=== PATIENT | male | born 1950 | race Caucasian/White ===

== ENCOUNTER → 2016-12-04 | Outpatient (CLI) | payer MEDICARE, OTHER ==
[~2016-12-04] MED LIST: ASPI-611 PO; CEPH500T PO
--- NOTE | 2016-12-04 13:36 | DI ---
Indication: ITS.REASON: M25.561 PAIN IN RIGHT KNEE PROCEDURE: KNEE RIGHT 3 VIEWS: Encounter: Initial Comparison: None Findings: There is no acute fracture, dislocation or malalignment identified. Moderate medial and lateral compartment joint space narrowing with small osteophytes and meniscal chondrocalcinosis. Patellofemoral compartment joint space is maintained. Impression: No acute osseous abnormality. Moderate osteoarthritis. .
--- NOTE | 2016-12-04 13:38 | DI ---
Indication: ITS.REASON: M25.561 PAIN IN RIGHT ANKLE/JOINTS OF RT FOOT PROCEDURE: ANKLE RIGHT 3 VIEW: Encounter: Initial Comparison: None Findings: There is no acute fracture, dislocation or malalignment identified. Old healed deformities of the distal tibia and fibula with malunion, incompletely evaluated. Significant degenerative change in the talonavicular joint. Posterior and inferior calcaneal spurring. Impression: No acute osseous abnormality. Degenerative change in the hindfoot. .
== END ==
LOC: IMA 12:23
PROVIDERS: ATTEND Family Medicine
DX: M17.11 Unilateral primary osteoarthritis, right knee (principal); M19.071 Primary osteoarthritis, right ankle and foot; M25.571 Pain in right ankle and joints of right foot; M25.561 Pain in right knee

== ENCOUNTER 2016-12-17 08:13 | Day surgery (SDC) | payer MEDICARE, OTHER ==
[~2016-12-17] VITALS: Ht 180.3 cm; Wt 84.2 kg
[~2016-12-17 08:13] MED LIST changes: -ASPI-611 PO; -CEPH500T PO; +LIDOCAINE 1% (10mg/ml) 2ml SDV INJ ONE; +LISI1TAB11 PO; +LR 1,000 ML IV SCH
--- OUTSIDE RECORDS SUMMARY | 2016-12-17 08:16 | XMS REPORT ---
Author Author Maurice Vines Organization [employer] Address Unknown Phone Unavailable Care Team Providers Care Manufacturing Worker Name Role Phone Maurice Vines CP Unavailable Allergies No Known Allergies Problems No Known Problems Medications Medication Code System Code Instructions Start Date End Date Status Dosage Lisinopril [facility] [address]-10 5 MG Orally Once a day Jul 23, 2015 1 tablet Results No Known Results Summary Purpose [employer]Works Submission
--- OUTSIDE RECORDS SUMMARY | 2016-12-17 08:16 | XMS REPORT ---
Author Author Maurice Vines Organization [employer] Address Unknown Phone Unavailable Care Team Providers Care Treer Name Role Phone Maurice Vines CP Unavailable Allergies, Adverse Reactions, Alerts Substance Reaction Event Type N.K.D.A. Info Not Available Non Drug Allergy Problems Problem Type Condition Code Onset Dates Condition Status Assessment Hypersomnia, unspecified G47.10 Active Assessment Family history of malignant neoplasm of prostate Z80.42 Active Problem Essential (primary) hypertension I10 Active Assessment Encounter for immunization Z23 Active Medications Medication Code System Code Instructions Start Date End Date Status Dosage Zostavax [facility] [address]-20 63031 UNT/0.65ML Subcutaneous once Apr 29, 2016 Apr 30, 2016 one injection Procedures Procedure Coding System Code Date OFFICE VISIT, EST-LOW COMPLEXITY (15 MIN.) CPT-4 31519 Apr 29, 2016 Vital Signs Date/Time: Apr 29, 2016 Temperature 97.4 F Height 70 in Weight 191.6 lbs Blood Pressure Diastolic 82 mm Hg Blood Pressure Systolic 124 mm Hg Cardiac Monitoring Heart Rate 75 /min BMI 27.49 Index Oximetry 98 % Respiratory Rate 16 /min Results No Known Results Summary Purpose [employer]Works Submission
--- OUTSIDE RECORDS SUMMARY | 2016-12-17 08:16 | XMS REPORT ---
Author Maurice Sheets Organization [employer] Address Unknown Phone Unavailable Care Team Providers Care Photocopying Equipment Repairer Name Role Phone Maurice Vines CP Unavailable Allergies No Known Allergies Problems Problem Type Condition Code Onset Dates Condition Status Assessment Other fatigue R53.83 Active Assessment Somnolence R40.0 Active Problem Essential (primary) hypertension I10 Active Assessment Essential (primary) hypertension I10 Active Medications No Known Medications Procedures Procedure Coding System Code Date C-REACTIVE PROTEIN CPT-4 62655 Apr 16, 2016 SED RATE CPT-4 32293 Apr 16, 2016 COMPLETE CBC W/AUTO DIFF WBC CPT-4 54652 Apr 16, 2016 URINALYSIS WITH MICROSCOPIC CPT-4 85617 Apr 16, 2016 TSH CPT-4 53754 Apr 16, 2016 IH LIPID PANEL CPT-4 55337 Apr 16, 2016 IH CMP CPT-4 84557 Apr 16, 2016 Results Name Result Date Reference Range Unit Abnormality Flag TSH ----TSH 1.83 [id number] 0.35-4.94 uIU/mL Urinalysis with Microscopic ----WBC, Urine 0-2 11970123 0-4 /HPF ----Blood Negative [id number] Negative ----Ketones Negative 01726705 Negative ----RBC, Urine 0-4 31711460 0-4 /HPF ----Nitrites Negative [id number] Negative ----Leukocyte Esterase Negative 26902311 Negative ----Protein Negative 35538249 Negative ----Urobilinogen 0.2 32520788 <1.0 mg/dL ----Appearance Clear 20160416 ----Glucose, Urine Negative [id number] Negative ----Epithelial Cells 0-2 65555389 /HPF ----Color Yellow 69816627 ----pH 6.5 42257605 5.0-8.0 ----Bilirubin Negative 45837766 Negative ----Specific [place] 1.013 28214933 1.003-1.030 CBC With Platelet and Differential ----Absolute Eosinophils 0.16 58362106 0.00-0.50 10*3 ----Absolute Monocytes 0.46 52564828 0.30-1.00 10*3 ----Neutrophils 61 93896381 51-75 % ----Absolute Basophils 0.01 24509871 0.00-0.20 10*3 ----MPV 10.5 11586098 8.8-14.8 fL ----Monocytes 10 85324316 4-11 % ----RDW 13.2 02113032 11.5-14.5 % ----Lymphocytes 25 05427765 20-46 % ----MCHC 35.3 28489589 32.0-36.0 g/dL ----MCH 31.0 14682493 27.0-32.0 pg ----MCV 87.9 47702857 82.0-99.0 fL ----Immature Granulocytes 0.2 91041656 0.0-1.0 % ----Platelet Count 172 31068213 150-400 K/uL ----Absolute Lymphocytes 1.15 13911751 0.80-3.30 10*3 ----Absolute Neutrophils 2.74 88995033 1.90-7.00 10*3 ----Eosinophils 4 53458642 0-4 % ----Basophils 0 28403622 0-2 % ----WBC 4.5 30953034 4.8-10.8 K/uL L ----RBC 5.03 12478389 4.60-6.20 10*6/uL ----HGB 15.6 67994797 14.0-18.0 g/dL ----HCT 44.2 49897744 42.0-52.0 % C-Reactive Protein ----C-Reactive Protein <0.5 04214111 <0.5 mg/dL Sedimentation Rate ----Sedimentation Rate 3 63865144 0-15 mm/h In House Lipid Panel ----VLDL 12 20160416 ----LDL 89 13739363 ----Chol/HDL Ratio 3.0 95903038 ----WYDLc 101 20160416 ----Triglycerides 61 57322827 ----HDL 51 20160416 ----Cholesterol 153 53925686 In House CMP ----CO2 29 63124750 18 - 33 mmol/L ----Potassium 3.8 91699765 3.6 - 5.1 mmol/L ----Glucose 79 54725270 73 - 118 mg/DL ----Chloride 105 18354419 98 - 108 mmol/L ----BUN 15 99923613 7 - 22 mg/DL ----Calcium 8.7 07920365 8.0 - 10.3 mg/DL ----Alkaline Phosphatase 44* 85604368 53 - 128 u/L ----Creatinine 0.9 14647059 0.6 - 1.2 mg/DL ----ALT 24 83304236 10 - 47 u/L ----Total Bilirubin 0.9 12328923 0.2 - 1.6 mg/DL ----AST 28 73424442 11 - 38 u/L ----EGFR >60 20160416 ----Albumin 3.7 66169150 3.3 - 5.5 g/DL ----Sodium 140 28727779 128 - 145 mmol/L ----Total Protein 6.4 72666491 6.4 - 8.1 G/DL Summary Purpose eClinicalWorks Submission
--- OUTSIDE RECORDS SUMMARY | 2016-12-17 08:16 | XMS REPORT ---
Author Author Maurice Vines Organization [employer] Address Unknown Phone Unavailable Care Team Providers Care Assembly Hand Name Role Phone Maurice Vines CP Unavailable Allergies, Adverse Reactions, Alerts Substance Reaction Event Type N.K.D.A. 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 Jun 26, 2015 Aug 07, 2015 1 application to affected area Procedures Procedure Coding System Code Date OFFICE VISIT, KING MAKER-LOW COMPLEXITY (20 MIN.) CPT-4 05379 Jun 26, 2015 Vital Signs Date/Time: Jun 26, 2015 Height 70 in Weight 188.0 lbs Temperature 98.1 F Blood Pressure Diastolic 86 mm Hg Blood Pressure Systolic 124 mm Hg Cardiac Monitoring Heart Rate 80 /min BMI 26.97 Index Oximetry 98 % Respiratory Rate 16 /min Results No Known Results Summary Purpose eClinicalWorks Submission
--- OUTSIDE RECORDS SUMMARY | 2016-12-17 08:16 | XMS REPORT ---
Author Author Maurice Vines Organization [employer] Address Unknown Phone Unavailable Care Team Providers Care Fishing Game Warden Name Role Phone Maurice Vines CP Unavailable Allergies, Adverse Reactions, Alerts Substance Reaction Event Type N.K.D.A. Info Not Available Non Drug Allergy Problems Problem Type Condition Code Onset Dates Condition Status Assessment Other fatigue R53.83 Active Assessment Somnolence R40.0 Active Problem Essential (primary) hypertension I10 Active Assessment Hemorrhage of anus and rectum K62.5 Active Assessment Other hemorrhoids K64.8 Active Assessment Essential (primary) hypertension I10 Active Assessment Low back pain M54.5 Active Medications No Known Medications Procedures Procedure Coding System Code Date OFFICE VISIT, EST-LOW COMPLEXITY (15 MIN.) CPT-4 75960 Apr 15, 2016 Vital Signs Date/Time: Apr 15, 2016 Temperature 97.7 F Height 70 in Weight 192.2 lbs Blood Pressure Diastolic 88 mm Hg Blood Pressure Systolic 122 mm Hg Cardiac Monitoring Heart Rate 73 /min BMI 27.57 Index Oximetry 97 % Results No Known Results Summary Purpose eClinicalWorks Submission
--- OUTSIDE RECORDS SUMMARY | 2016-12-17 08:16 | XMS REPORT | Continuity of Care Document ---
Author Author [facility] Organization [facility] Address Unknown Phone Unavailable Support Name Relationship Address Phone JONASGERALDO GRANT Caregiver [facility] [address] [place] [address] SARA LIZARRAGA Caregiver [address] [place], [place] [address] KAREN RICO Caregiver [address] [place] [address] MICHELLE HERNANDEZ Next Of Kin Unknown [phone] Insurance Providers Payer Name Policy Number Subscriber Name Relationship [employer] [id number] Rohit Hernandez 19 Self Advance Directives Directive Response Recorded Date/Time Advanced Directives Type None 11/16/14 2:44pm Problems Medical Problems Problem Onset Date Status Cellulitis Unknown Active Contusion Unknown Active Cellulitis Unknown Active Medications Medication Dose Route Sig Days/Qty Instructions Order Date Discontinued Date Status Hydrocodone Bit/Acetaminophen 1 Tab PO NEEDED 03/01/11 12/02/12 Discontinued Aspirin 81 Mg PO DAILY 12/02/12 Active Cephalexin 1 Tab PO FOUR TIMES DAILY 7 Days 11/16/14 Active Social History Social History Problem Response Recorded Date/Time Chewing Tobacco Status No 12/02/2012 2:20pm Hx Substance Use No 11/16/2014 1:35pm Hx Alcohol Use No 11/16/2014 1:35pm Has the pt used tobacco in the last 12 months No 12/02/2012 2:20pm Query Response Start Date Stop Date Smoking Status Never smoker Hospital Discharge Instructions No hospital discharge instructions. Plan of Care No plan of care. Functional Status Query Response Date Recorded Physical Hygiene Self November 16, 2014 1:35pm Disabilities Visual November 16, 2014 1:35pm Devices Used Glasses November 16, 2014 1:35pm Dressing Self November 16, 2014 1:35pm Ambulation Self November 16, 2014 1:35pm Diet Self November 16, 2014 1:35pm Mental Status Alert Oriented November 16, 2014 1:35pm Disabilities Visual November 16, 2014 1:35pm Devices Used Glasses November 16, 2014 1:35pm Physical Hygiene Self November 16, 2014 1:35pm Dressing Self November 16, 2014 1:35pm Ambulation Self November 16, 2014 1:35pm Diet Self November 16, 2014 1:35pm Allergies, Adverse Reactions, Alerts Allergen Type Severity Reaction Status Last Updated No Known Allergies Active 03/01/11 Immunizations Name Given Type Hx Influenza Vaccination No Historical Hx Pneumococcal Vaccination No Historical Hx Tetanus, Diptheria, Pertussis N 1992 Historical Hx Influenza Vaccination No Historical Hx Tetanus Diptheria N UNKNOWN Historical Hx Tetanus, Diptheria, Pertussis N 1992 Historical Hx Tetanus Toxoid Vaccination No Historical Vital Signs Acute Vital Signs Vital Response Date/Time Temperature (Fahrenheit) 97.8 deg F (96.8 - 99.1) Temperature (Calculated Celsius) 36.33950 degrees C (36.0 - 37.3) Pulse Rate (adult) 82 bpm (60 - 100) Respiratory Rate 16 breaths/min (10 - 20) O2 Sat by Pulse Oximetry 97 % (90 - 100) Blood Pressure 179/97 mm Hg Height 5 ft 11 in Weight 191 lb Body Mass Index 26.0 kg/m^2 Results Test Source Date Result Interp. Ref. Range Comments Alanine Aminotransferase (ALT/SGPT) March 01, 2011 11:20am 24 U/L N 21- 72 Albumin March 01, 2011 11:20am 4.1 G/DL N 3.5-5.0 Albumin/Globulin Ratio March 01, 2011 11:20am 1.5 RATIO N 1.1-2.2 Alkaline Phosphatase March 01, 2011 11:20am 55 U/L N 38-126 Anion Gap March 01, 2011 11:20am 8 MEQ/L N 5-15 Aspartate Amino Transf (AST/SGOT) March 01, 2011 11:20am 35 U/L N 17-59 BUN/Creatinine Ratio March 01, 2011 11:20am 23 RATIO N 6-26 Basophils # (Auto) November 16, 2014 3:17pm 0.0 T/MM3 N 0-0.2 Basophils (%) (Auto) November 16, 2014 3:17pm 0.4 % N 0-2 Blood Urea Nitrogen March 01, 2011 11:20am 18.0 MG/DL N 9-20 Calcium Level March 01, 2011 11:20am 8.8 MG/DL N 8.4-10.2 Calculated Osmolality March 01, 2011 11:20am 274 MOSM/KG N 261-280 Carbon Dioxide Level March 01, 2011 11:20am 29 MEQ/L N 22-30 Chloride Level March 01, 2011 11:20am 105 MEQ/L N 98-107 Creatinine March 01, 2011 11:20am 0.8 MG/DL N 0.8-1.5 D-Dimer March 01, 2011 11:20am 182 NG/ML N 0-230 <224 NG/ML=PRESUMPTIVE NEGATIVE FOR PE OR DVT>224 NG/ML=ADDITIONAL EVALUATION FOR PE OR DVT RECOMMENDED Eosinophils # (Auto) November 16, 2014 3:17pm 0.2 T/MM3 N 0-0.5 Eosinophils (%) (Auto) November 16, 2014 3:17pm 2.8 % N 0-4 Globulin March 01, 2011 11:20am 2.7 G/DL N 2.4-3.6 Glomerular Filtration Rate Calc March 01, 2011 11:20am 99 - Glucose Level March 01, 2011 11:20am 86 MG/DL N 75-110 Hematocrit November 16, 2014 3:17pm 41.2 % N 41-53 Hemoglobin November 16, 2014 3:17pm 14.0 GM/DL N 13.5-17.5 Immature Granulocyte # (Auto) November 16, 2014 3:17pm 0.01 T/MM3 N 0.00- 0.03 Immature Granulocyte % (Auto) November 16, 2014 3:17pm 0.2 % N 0.0-0.5 Lymphocytes # (Auto) November 16, 2014 3:17pm 1.2 T/MM3 N 1-4.8 Lymphocytes (%) (Auto) November 16, 2014 3:17pm 21.6 % L 23-45 Mean Corpuscular Hemoglobin November 16, 2014 3:17pm 30.2 UUG N 26-34 Mean Corpuscular Hemoglobin Concent November 16, 2014 3:17pm 34.0 GM/DL N 31-37 Mean Corpuscular Volume November 16, 2014 3:17pm 89.0 UM3 N 80-100 Mean Platelet Volume November 16, 2014 3:17pm 9.9 UM3 N 9.4-12.4 Monocytes # (Auto) November 16, 2014 3:17pm 0.5 T/MM3 N 0-0.8 Monocytes (%) (Auto) November 16, 2014 3:17pm 8.4 % N 0-9.0 Neutrophils # (Auto) November 16, 2014 3:17pm 3.8 T/MM3 N 1.8-7.7 Neutrophils (%) (Auto) November 16, 2014 3:17pm 66.6 % H 33-66 Platelet Count November 16, 2014 3:17pm 182 T/MM3 N 130-400 Potassium Level March 01, 2011 11:20am 3.8 MEQ/L N 3.6-5 Prothromb Time International Ratio March 01, 2011 11:20am 0.97 N 0.86- 1.10 THERAPUTIC RANGE=2.00-3.00 FOR ANTI-THROMBOSIS THERAPUTIC RANGE=2.50- 3.50 FOR IMPLANTED VALVE RDW Standard Deviation November 16, 2014 3:17pm 41.1 FL N 36.9-50.2 Red Blood Count November 16, 2014 3:17pm 4.63 M/MM3 N 4.50-5.90 Sodium Level March 01, 2011 11:20am 142 MEQ/L N 134-144 Total Bilirubin March 01, 2011 11:20am 1.40 MG/DL H 0.20-1.30 Total Protein March 01, 2011 11:20am 6.8 G/DL N 6.3-8.2 White Blood Count November 16, 2014 3:17pm 5.7 T/MM3 N 4.5-11.0 Blood Culture Blood March 01, 2011 11:20am Coag Negative Staphylococcus Name: ROHIT HERNANDEZ Unit #: [id number] : 1950 Sex: M Loc / Svc: ED DOS: 11/16/14 Signed Report #: [id number] DIAGNOSTIC IMAGING REPORT TYPE OF EXAM: US VENOUS DUPLEX, LOWER EXT LT Dictated By: KRISH HOOPER MD Indication: ITS.REASON: swelling/pain US VENOUS DUPLEX, LOWER EXT LT: Comparison: March 01, 2011. Findings: There is no evidence for acute deep venous thrombosis in the left thigh. Specifically, serial graded compression was performed from the inguinal ligament to the popliteal bifurcation, on the left thigh, demonstrating appropriate compressibility of the deep venous system. In addition, color and pulsed Doppler demonstrate appropriate spontaneous flow, variation with respiration, and augmentation with calf compression. At the ankle, normal flow is identified in the posterior tibial veins; these vessels are also normal in caliber. Impression: No evidence of acute DVT in the left lower limb. . Procedures No known history of procedures. Encounters Encounter Location Date/Time Registered Emergency Room [facility] 11/16/14 1:23pm Recent Diagnosis
[2016-12-17 08:28] VITALS: BP 138/78; PULSE 75; RESP 16; TEMP 97.5; O2SAT 98
[2016-12-17 08:29] VITALS: Ht 180.3 cm; Wt 84.2 kg
--- NOTE | 2016-12-17 09:11 | ANESPREOP ---
Anesthesia Record Date and Time DATE: 12/17/16 TIME: 09:09 Pre-Op Diagnosis screening Proposed Surgical Procedure SCREENING COLONOSCOPY NPO since: mn Allergies: Coded Allergies: No Known Allergies (Unverified , 12/17/16) Ht/Wt/BMI Height: 5 ' 11.00 " Weight: 84.200 kg BMI: 25.9 kg/m2 Vital Signs Date Time Temp Pulse Resp B/P Pulse Ox O2 Delivery O2 Flow Rate FiO2 12/17/16 08:28 97.5 75 16 138/78 98 Room Air Medications Inpatient Medications Current Medications Medications (Trade) Dose Ordered Sig/Ariella Start Time Stop Time Status Last Admin Dose Admin Lactated Ringer's (Lactated Ringers) 1,000 ml @ 50 mls/hr Q20H 12/17/16 07:00 12/17/16 08:52 50 MLS/HR Lisinopril/Hydrochlorothiazide (Lisinopril-Hctz 20-12.5 mg Tab) 1 Each Tablet, 1 TAB PO DAILY, (Reported) Last Taken: on 12/15/16 0730 Currently on Beta Bernarda: No Medical/Surgical History Anesthesia PMH: Reports: *Hypertension (TAKES MEDS), Arthritis (MINOR), Reflux (OCCASIONAL), Denies: *Angina, *Diabetes, *Dyspnea, *OR, Anesthesia Reactions ( NO AIRWAY ISSUES), Asthma, CHF, COPD, CVA/Stroke/TIA, Cancer, Clotting Problems , Deep Vein Thrombosis, Glaucoma, Hepatitis, Hiatal Hernia, Malignant Hyperthermia, Pneumonia, Renal Disease, Seizures, Sleep Apnea, Thyroid Disease, Tuberculosis Has pt. smoked today?: No Use Chewing Tobacco?: No Second Hand Exposure: No Substance Use Type: does not use Alcohol Intake: none Past Surgical History Orthopedic Surgeries: Yes - RIGHT LOWER LEG-REPAIR, PINKY FINGER- CYST REMOVED Abdominal Surgeries: No Genitourinary Surgeries: No Cardiac Surgeries: No Endocrine Surgeries: No Reproductive Surgeries: No Neurological Surgeries: No Ear Surgeries: No Nose Surgeries: No Throat Surgeries: No Other Surgeries: Yes - COLONOSCOPY X3 Anesthesia Adverse Reactions: FOUND none Pertinent Findings EKG Rhythm: Sinus Rhythm Physical Exam Respiratory: Bilat breath sounds equal, Lungs clear Cardiovascular: FOUND Regular rate, rhythm, FOUND No murmur Airway Assessment Mallampati Score: II TMD: 3 Fingerbreadths Neck Extension: Good Overall Assessment: No Airway Concerns ASA: 2 Plan Anesthesia Plan: TIVA Discussion Discussed risks/options/alternatives of anesthesia and questions answered. Patient consents. Nursing pain assessment noted. Attestation Statement Prior to the delivery of any anesthetic medication, I examined the patient, developed the plan, obtained the patient's consent and discussed the risk and benefits of the procedure with the patient/guardian. HANNAH CASON CRNA Dec 17, 2016 09:11
[2016-12-17 10:08] VITALS: BP 97/67; PULSE 73; RESP 12; TEMP 96.9; O2SAT 96
[2016-12-17 10:23] VITALS: BP 102/63; PULSE 71; RESP 16; O2SAT 96
--- NOTE | 2016-12-17 10:33 | ANESPO ---
Post-Op Note Date 12/17/16 Time: 10:20 Status Pt Participated in Evaluation: Pt participated in person Vital Signs Date Time Temp Pulse Resp B/P Pulse Ox O2 Delivery O2 Flow Rate FiO2 12/17/16 10:23 71 16 102/63 96 Room Air 12/17/16 10:08 96.9 Respiratory Function: Airway patent Mental Status: Alert/oriented Pain Level Intensity: 0 Hydration: IV infusing Complications during Recovery None apparent Follow-Up Instructions Instructions Per Surgeon HANNAH CASON CRNA Dec 17, 2016 10:33
[2016-12-17 10:38] VITALS: BP 124/82; PULSE 68; RESP 16; O2SAT 99
[2016-12-17 10:53] VITALS: BP 138/90; PULSE 64; RESP 16; O2SAT 99
--- NOTE | 2016-12-18 06:45 | OPNOTEF ---
DATE OF PROCEDURE: 12/17/2016 SURGEON: Ruel Moscoso MD PREOPERATIVE DIAGNOSIS Family history for colon cancer within a first-degree relative. POSTOPERATIVE DIAGNOSIS Family history for colon cancer within a first-degree relative, normal colonoscopy/moderate diverticulosis. PROCEDURE: Colonoscopy. ANESTHESIA: TIVA BRIEF HISTORY/INDICATIONS Rohit is a 66-year-old male patient of mine who was seen in the office for a comprehensive exam. His father, unfortunately, of colon cancer at a late age. Decision was made to proceed with a colonoscopy. FINDINGS Upon colonoscopy, there was no evidence for angiodysplastic lesions, polyps or jak malignancies. The patient found to have moderate sigmoid diverticulosis. DESCRIPTION OF PROCEDURE After informed consent was obtained, the patient was brought to the endoscopy suite and placed on the table in left lateral decubitus position. The patient subsequently underwent total intravenous anesthesia by the nurse occupational therapy aide per my request. Next, a digital rectal examination was performed. Normal sphincter tone. No rectal masses were appreciated. An Olympus colonoscope was inserted in the anus and advanced with the lumen of the colon under direct visualization at all times until the cecum was ascertained. Triangulation of the tenia coli, ileocecal valve and appendiceal lumen were all visualized. The scope was then slowly withdrawn, again while maintaining visualization of the lumen at all times. As stated above, the entire colon was without evidence for angiodysplastic lesions, polyps or jak malignancies. The patient found to have moderate sigmoid diverticulosis. The scope was continued to be withdrawn until it was brought back into the patient's anal verge. A J-maneuver was then performed. No worrisome perianal pathology was noted. The scope was subsequently withdrawn. The patient tolerated the procedure without difficulty and was sent back to the preop area in stable condition. Secondary to the absence of findings upon this colonoscopy, the patient will not need to undergo a repeat colonoscopy until five years from now secondary to his family history of colon cancer in a first-degree relative. RALF
== END 2016-12-17 11:04 | disposition home or self-care (01) ==
LOC: NSC 08:13
PROVIDERS: ATTEND Family Medicine
DX: Z12.11 Encounter for screening for malignant neoplasm of colon (principal); K57.30 Diverticulosis of large intestine without perforation or abscess without bleeding; Z80.0 Family history of malignant neoplasm of digestive organs
CPT/HCPCS: G0105; J7120